=== PATIENT | female | born 1980 | race African-American/Black ===

== ENCOUNTER 2017-09-18 23:00 | Inpatient (IN) ==
[2017-09-18] MEDS ORDERED: Ringers Solution, Lactated 1,000 ML IVC SCH (23:45)
[2017-09-18] MEDS ORDERED: Metoclopramide 10 MG/2 ML VIAL IVP PRN (23:49)
[2017-09-18] MEDS ORDERED: *HR* Nalbuphine 20 MG/ML AMPUL IVP PRN (23:49)
[2017-09-18] MEDS ORDERED: Naloxone 0.4 MG/ML INJ IVP PRN (23:49)
[2017-09-18] MEDS ORDERED: Ondansetron 4 MG/2 ML VIAL IVP PRN (23:49)
[2017-09-18] MEDS ORDERED: Famotidine 20 MG/2 ML VIAL IVP PRN (23:49)
--- NOTE | 2017-09-19 00:24 | OB/GYN History & Physical ---
Date of Encounter: 09/19/17 Time of Encounter: 23:53 Assessment and Plan (1) Post-dates Current visit: Yes Status: Acute Admit for IOL Valentin placed in cervix. Balloon inflated with 30ml sterile water. Plan for cytotec when pt is ready. Epidural if requested. GBS negative. Anticipate . Qualifiers: Post-term type: 40-42 weeks gestation Qualified Code(s): O48.0 - Post-term (2) AMA (advanced maternal age) primigravida 35+ Current visit: Yes Status: Acute Qualifiers: Trimester: third trimester Qualified Code(s): O09.513 - Supervision of elderly primigravida, third trimester (3) Morbid obesity with BMI of 50.0-59.9, adult Current visit: Yes Status: Acute (4) Postmaturity , 40-42 weeks gestation Current visit: Yes Status: Acute History of Present Illness Chief complaint: postdates , IOL HPI: Ms. Gretchen Ferrell is a 36 year old female presenting at 40 weeks and 3 days gestation for scheduled induction of labor due to postdates . This has been complicated by AMA status and morbid obesity. She denies complaints at this time. Good FM. Blood type O positive Rubella immune Serologies negative. GBS negative Past Med Surg Social Fam HX - Family History Mother Age: 66 Living Status: Still Living Hx Family Cardiac Disorders: Yes (htn) Hx Family Respiratory Disorders: No Hx Family Cancer: No Hx Family GI Disorders: No Hx Family Genitourinary Disorders: No Hx Family Endocrine Disorder: Yes (diabetic) Hx Family Musculoskeletal Disorders: No Hx Family Neuromuscular Disorders: No Hx Family Neurologic Disorders: No Hx Family HEENT Disorders: No Hx Family Autoimmune Disorders: No Hx Family Reproductive Disorders: No Hx Family Psychosocial Disorders: No Hx Family Medical Disorders: No Medications and Allergies Ferrous Sulfate 325 mg PO DAILY 09/19/17 [History] Formula Tablet 1 tab PO DAILY 09/19/17 [History] 3 Allergy/AdvReac Type Severity Reaction Status Date / Time No Known Allergies Allergy Verified 09/19/17 00:20 Exam - Constitutional Constitutional: well developed, no acute distress, morbidly obese - HEENT HEENT: Mucus Membranes Moist - Lungs Respiratory exam: CTAB - Cardiovascular Cardiovascular exam: RRR, +S1, +S2 - Abdomen Abdomen: Present: gravid, non tender - Extremities Extremities exam: normal inspection, pedal edema (1+ bilaterally) Deep Tendon Reflex Grade: 1+ Diminished - Cervix Dilation: 1 (1-2) Effacement: 70 Station: -1 - Anus/Rectum Anus/Rectum: Present: normal perianal skin Results Result Diagrams: 09/19/17 00:53 All other labs normal.
[2017-09-19] MEDS ORDERED: miSOPROStol 25 MCG TABLET VG SCH (01:00)
[2017-09-19 01:16] LABS: Alanine Aminotransferase 15 Units/L (0-55); Aspartate Amino Transferase 33 Units/L (5-34); BUN/Creatinine Ratio 14 (6-26); Protein/Creatinine Ratio,Urine 0.41 mg/mg (0-0.20); Uric Acid 4.6 mg/dL (2.6-6.0); eGFR For African Americans > 60 (> 60); eGFR For Non-African Americans > 60 (> 60)
[2017-09-19 01:17] LABS: Blood Urea Nitrogen 11 mg/dL (7-20); Lactate Dehydrogenase 240 Units/L (159-327)
[2017-09-19 01:43] LABS: Basophils % 0.2 %; Eosinophils # 0.1 K/mcL (0.0-0.6); Eosinophils % 1.1 %; Hematocrit 29.3 % (35.3-44.9); Hemoglobin 9.6 g/dL (11.5-15.4); Immature Granulocytes % 0.9 % (0-4); Lymphocytes # 2.2 K/mcL (0.6-4.6); Lymphocytes % 24.9 %; Mean Corpuscular HGB Conc 32.8 g/dL (31.6-35.5); Mean Corpuscular Hemoglobin 28.4 pg (28.0-33.3); Mean Corpuscular Volume 86.7 fL (83.0-100.0); Mean Platelet Volume 11.4 fL (9.4-12.4); Monocytes # 0.7 K/mcL (0.0-1.3); Monocytes % 8.2 %; Neutrophils # 5.6 K/mcL (1.6-8.9); Nucleated Red Blood Cells 0.2 /100 WBC (0); Platelet Count 170 K/mcL (140-400); Red Blood Count 3.38 M/mcL (3.82-4.97); Segmented Neutrophils % 64.7 %
[2017-09-19 01:50] LABS: Amphetamine Screen,Urine Negative ng/mL (Cutoff=1000); Barbiturate Screen,Urine Negative ng/mL (Cutoff=200); Benzodiazepines Screen,Urine Negative ng/mL (Cutoff=200); Cannabinoid Screen,Urine Negative ng/mL (Cutoff = 50); Cocaine Screen,Urine Negative ng/mL (Cutoff= 300); Opiate Screen,Urine Negative ng/mL (Cutoff=300); Phencyclidine Screen,Urine Negative ng/mL (Cutoff=25)
[2017-09-19] MEDS ORDERED: miSOPROStol 100 MCG TABLET PO STA (02:54)
--- NOTE | 2017-09-19 02:56 | OB Labor Progress Note ---
Date of Encounter: 09/19/17 Time of Encounter: 02:55 Labor Progress Note - Subjective Subjective: Pt reports minimal discomfort at this time. - Heart Tones Heart Tones: Category I - Interventions Interventions: Valentin balloon out - Plan Plan: Cytotec 50mcg PO now.
[2017-09-19] MEDS: Ringers Solution, Lactated 1,000 ML IVC SCH (04:38)
[2017-09-19] MEDS: Magnesium Sulfate 20 gm/500mL 20 GM/500 ML IV.SOLN IVC SCH ×2 (05:13→15:14)
[2017-09-19] MEDS ORDERED: *HR* Labetalol 20 MG/4 ML SYRINGE IVP ONE ×3 (07:58→13:31)
[2017-09-19] MEDS ORDERED: Calcium Gluconate 1,000 MG/10 ML VIAL IVPB ONE (08:19)
--- NOTE | 2017-09-19 08:56 | OB Labor Progress Note ---
Date of Encounter: 09/19/17 Time of Encounter: 08:54 Labor Progress Note - Subjective Subjective: Patient in bed. Tolerating labor well. States she is tired, but does not have flu-like symptoms associated with the IV magnesium. - Vital Signs Vital Signs: VSS. Blood pressure stabilizing with magnesium and labetalol. - Cervix Cervix: 3-4/80/-1 - Heart Tones Heart Tones: 125 moderate variability and 15 x 15 accels. - [place] Chaparral: irregular uterine irritability - Interventions Interventions: AROM for clear fluid, IUPC and FSE placed without difficulty. Fetus and patient tolerated well. - Plan Plan: Continue routine labor management GBS negative Continue magnesium for pre-eclampsia Start pitocin and titrate for adequate labor Patient may have epidural and/or nubain upon request Anticipate vaginal delivery POC per consult with Dr Davenport.
[2017-09-19] MEDS ORDERED: Oxytocin 20 units/ LR 1000 mL 20 UNIT/1,000 ML BAG IVC SCH (09:00)
--- NOTE | 2017-09-19 12:19 | OB Labor Progress Note ---
Date of Encounter: 09/19/17 Time of Encounter: 11:13 Labor Progress Note - Subjective Subjective: Patient breathing through contractions - Vital Signs Vital Signs: VSS - Cervix Cervix: 4/80/-1 - Heart Tones Heart Tones: 130 moderate variability - [place]: Contractions every 3-4 minutes. - Interventions Interventions: IUPC and FSE replaced without difficulty. States they both fell out when patient got up to use the restroom. - Plan Plan: Continue routine labor management GBS negative Continue Magnesium Patient may have nubain/epidural upon request Pitocin currently infusing at 4mu/min. Titrate for adequate labor Anticipate vaginal delivery POC per consult with Dr Davenport.
--- NOTE | 2017-09-19 12:52 | Anesthesia Evaluation PreOp ---
Date of Encounter: 09/19/17 Time of Encounter: 12:50 - Past History Planned Operation: labor epidural Cardiac History: Denies any Significant Hx Pulmonary History: Denies Any Significant HX CORE BLOWER History: Denies Any Significant HX Other Medical History: Other (morbid obesity BMI 58.) Anesthesia History: No Prior Anesthetic Complications, Past Anesthesia (wisdom teeth extracted. No problems with sedation. No family history of anrsthetic problems.) Alcohol Use: none Drug use: none Medications and Allergies Ferrous Sulfate 325 mg PO DAILY 09/19/17 [History] Formula Tablet 1 tab PO DAILY 09/19/17 [History] 3 Allergy/AdvReac Type Severity Reaction Status Date / Time No Known Allergies Allergy Verified 09/19/17 00:20 - Meds/Allergy Pre-op Review Medications Reviewed: Yes Allergies Reviewed: Yes Beta Blockers on Current Med List: No Anesthesia Results - Labs 09/19/17 00:50 09/19/17 00:53 Anesthesia Exam VSS and FHTs stable. Height: 5'4" Weight: 154 KG NPO (# of Hours): >8 hrs for solids. Pain Scale: 4 Pain Scale Used: Numeric (1 - 10) - HEENT Pupil (Motor): Pupils equal Mallampati: III Teeth: Normal Oral Opening: Greater than 3 - CORE BLOWER LOC: Oriented CORE BLOWER Motor: Normal RUE, Normal LUE, Normal RLE, Normal LLE, Normal Face CORE BLOWER Sensory: Normal: RUE, LUE, RLE, LLE, Face - Cardiac Rhythm: Regular - Pulmonary Breath Sounds: bilateral Clear Respiratory Effort: Symmetrical Anesthesia Assess/Plan ASA Score: 3 Modified [place] Scale for Level of Consciousness: Cooperative, oriented, and tranquil Anesthetic Plan: Regional Monitoring Plan: Standard Monitors
[2017-09-19] MEDS ORDERED: Bupivacaine-MPF 0.25% 10 ML VIAL EP ONE (13:35)
[2017-09-19] MEDS ORDERED: *HR* FentaNYL (PF) 100 MCG/2 ML VIAL EP ONE (13:35)
[2017-09-19] MEDS ORDERED: Epidural Premix (fent/bupiv) 110 ML EP SCH (13:45)
[2017-09-19] MEDS ORDERED: Epidural Premix (fent/bupiv) 110 ML EP ONE (17:26)
[2017-09-19] MEDS ORDERED: Bupivacaine-MPF 0.25% 10 ML VIAL ONE (17:26)
[2017-09-19] MEDS ORDERED: *HR* FentaNYL (PF) 100 MCG/2 ML VIAL ONE (17:27)
--- NOTE | 2017-09-19 18:12 | Anesthesia Procedures ---
Date of Encounter: 09/19/17 Time of Encounter: 17:40 Procedures: Anesthesia - Epidural/Spinal Patient ID/Chart reviewed: Yes Patient examined: Yes OB Eval: Gestational age: 40 OB Eval: : 1 OB Eval: Hx Para: 0 OB Eval: Dilated at (cm): 5 OB Eval: Contractions: Non-stressed pattern Consent Obtained: Yes Supplemental Oxygen: None/Room Air Site Prep: Aseptic Technique, Sterile prep and drape, Povidone-Iodine 1% Patient position: upright Local Anesthetic: Lidocaine 1% Amount of Local Anesthetic used: 3 Touhy Needle Gauge: 18 Touhy Needle Depth (cm): 6 Catheter Depth at Skin (cm): 20 Test Dose (1.5% Lido + Epi): Volume given (mls): 3 Test Dose Result: Negative Loading Dose: 0.25% Marcaine (mls): 8 Loading Dose: Fentanyl (mcg): 100 Loading Dose Administered: Thru Catheter Infusion Med: 0.125% Bupivacaine w/ 2 mcg/ml Fentanyl Infusion Rate (mls/hr): [address]: Tegaderm, Tape Interspace Used: L3-L4 Loss of Resistance (MANJIT): Yes Blood: No CSF: No Paresthesia: No Vitals + FHT's: 3 Vital Signs Time 1740 1750 1755 1800 1805 1810 BP 184/103 116/62 107/55 108/55 100/52 122/62 Pulse 76 70 80 72 78 79 FHTs 120 120 120 120 120 120
[2017-09-19] MEDS ORDERED: EPHEDrine 50 MG/ML VIAL ONE (18:25)
[2017-09-19] MEDS ORDERED: Water for inj. (sterile) 10 ML IV ONE (18:26)
--- NOTE | 2017-09-19 18:42 | Anesthesia Progress Note ---
Date of Encounter: 09/19/17 Time of Encounter: 18:38 Anesthesia Note - Note Note: 09/19/17 18:38 called to LDR 9 for decreased blood pressure. 98/59. Patient's pressures have been rather high today. Feeling slightly lightheaded and heart monitor showed a late and decel that was relieved with position change. Ephedrine 5mg given with little to no effect. 5mg repeated and BP up to 109/62. Gave a third dose of 5mg Ephedrine with BP at 106/53. Gave anotherdose of 10mg ephedrine. pt. and baby stable. 09/19/17 18:42
[2017-09-20] MEDS ORDERED: Bupivacaine-MPF 0.25% 10 ML VIAL ONE ×2 (00:12→05:05)
[2017-09-20] MEDS ORDERED: *HR* FentaNYL (PF) 100 MCG/2 ML VIAL ONE ×2 (00:12→05:05)
[2017-09-20] MEDS: Magnesium Sulfate 20 gm/500mL 20 GM/500 ML IV.SOLN IVC SCH ×2 (01:09→09:30)
[2017-09-20] MEDS ORDERED: Epidural Premix (fent/bupiv) 110 ML EP ONE ×2 (01:23→08:42)
--- NOTE | 2017-09-20 06:52 | OB Labor Progress Note ---
Date of Encounter: 09/20/17 Time of Encounter: 06:50 Labor Progress Note - Subjective Subjective: Patient is feeling some pressure with contractions; has had multiple boluses overnight for her epidural. - Vital Signs Vital Signs: VSS - Cervix Cervix: 7/80/0 anterior. mild amount of caput noted to head. - Heart Tones Heart Tones: FHTs 150 with moderate variability no accels no decels category I tracing - [place] Soapstone [place] Soap[place]: iupc contractions every 2-3 minutes adequate labor pattern - Plan Plan: Continue routine labor management Magnesium for pre-eclampsia Epidural for pain control Encourage frequent position changes GBS negative Titirate pitocin as needed for adequate labor pattern Anticipate vaginal delivery POC per consult with Dr Davenport.
[2017-09-20] MEDS: *HR* Labetalol 20 MG/4 ML SYRINGE IVP ONE ×2 (08:49→14:09)
[2017-09-20] MEDS: Ringers Solution, Lactated 1,000 ML IVC SCH (09:29)
[2017-09-20] MEDS ORDERED: ROPIVACAINE HCL/PF 0.5% 30 ML VIAL ONE (10:27)
[2017-09-20] MEDS ORDERED: Lidocaine/EPI 1:200k 2% PF 20 ML VIAL ONE (10:29)
[2017-09-20] MEDS ORDERED: EPHEDrine 50 MG/ML VIAL ONE (11:22)
[2017-09-20] MEDS ORDERED: *HR* Succinylcholine 200 MG/10 ML VIAL IVP ONE (11:25)
[2017-09-20] MEDS ORDERED: Propofol 500 MG/50 ML INFUS..BTL ONE (11:25)
[2017-09-20] MEDS ORDERED: *HR* Oxytocin 10 UNIT/ML VIAL IM ONE (11:35)
[2017-09-20] MEDS ORDERED: *HR* FentaNYL (PF) 250 MCG/5 ML VIAL ONE (11:48)
[2017-09-20] MEDS ORDERED: *HR* Morphine Sulfate/PF 5 MG/10 ML AMPUL ONE (11:49)
--- NOTE | 2017-09-20 12:06 | OB Labor Progress Note ---
Date of Encounter: 09/20/17 Time of Encounter: 11:20 Labor Progress Note - Subjective Subjective: Pt more comfortable after epidural bolus - Cervix Cervix: 6/90/-1 - Heart Tones Heart Tones: 130/minimal/ late deceleration s - Plan Plan: Pt with late decelerations and minimal variability. repositioning, fluid bolus and pitocin turned off. Dr. Farnsworth called and evaluated tracing . Decision made to proceed with section. Pt transfered to OR and MD care.
[2017-09-20] MEDS ORDERED: Azithromycin 500 MG in D5% in Water 250 ML IVPB ONE (12:33)
--- NOTE | 2017-09-20 12:45 | Anesthesia Evaluation Post Op ---
Date of Encounter: 09/20/17 Time of Encounter: 12:42 - Vital Signs Vital Signs: vss, close monitoring on vs, was on MAG GTT. - Lungs Lungs: Clear Ascult./Percussion - Airway Airway: Non-obstructed - Mental Status Mental Status: Alert & Oriented, Answers Appropriately - Pain Pain Scale used: Manuel (Faces) - Nausea Vomiting Nausea Vomiting: Not Present - Discharge PostOp Status: Transfer Patient to floor
[2017-09-20] MEDS ORDERED: *HR* Promethazine 25 MG/ML VIAL IVP PRN (12:46)
[2017-09-20] MEDS ORDERED: *HR* HYDROmorphone (PF) 1 MG/ML SYRINGE IVP PRN ×2 (12:46→16:24)
--- NOTE | 2017-09-20 12:46 | OB/GYN Procedure Note ---
Section - Date of procedure: 09/20/17 Preop diagnosis: arrest of dilation, category 2 FHT tracing Post-op diagnosis: same (with suspected chorioamnionitis) Procedure: section, primary low transverse Surgeon: Claudia Farnsworth Estimated blood loss (cc): 400 Rip Saw Operator: Samara Valdivia Sports Instructor: Clint Morin Anesthesia Type: Epidural section complications: none Disposition: L&D Recovery Room Specimens: Placenta, Cord gasses - Infant (s) Infant A Delivery Date: 09/20/17 Delivery Time: 11:33 Presentation: vertex Position: ROP Gender: Male Viability: Viable Pounds: 7 Ounces: 10 at 1 minute: 5 at 5 minutes: 8 Specimens collected: cord blood, venous cord gases, arterial cord gases Placenta: spontaneous Cord: nuchal cord, 3 umbilical vessels, nuchal reduced - Narrative Narrative: Called to patient's room to evaluate tracing and discuss need for emergent section. heart rate tracing revealed minimal variability and late decelerations. Risks benefits and alternatives were discussed with the patient and informed consent obtained. Patient was taken to the operative suite and her epidural bolused. Betadine was fashion maternal abdomen. She was then draped in normal sterile fashion in the dorsal supine position. Timeout was then performed. Antibiotics were given, 3 g of Ancef. SCDs are on and active. Pfannenstiel skin incision is then made and carried through to underlying layer of fascia. The fascia was then incised in the midline and incision extended laterally with the Brooks scissors. The fascia was tented up and dissected off the rectus muscles sharply. The rectus muscles were in the midline and the peritoneum was tented up and entered sharply with the Metzenbaum scissors. The peritoneal incision was then extended bluntly. The bladder blade was then inserted and the vesicouterine peritoneum was idnetified. A low transverse uterine incision was then made above the vesicouterine peritoneum. An immediate odor was noted. The infant vertex was brought to the incision and the infant was delivered using fundal pressure. There was a nuchal cord which was reduced. Cord was clamped and cut. was handed to waiting nursery staff. A segment of cord was then collected for cord gases. Placenta delivered spontaneously complete and intact with a three-vessel cord and was ordered for cultures and pathology. The uterus was cleared of all clots and debris using moist laparotomy sponge. The uterine incision was then closed using 0 Vicryl in a running locked fashion. A second layer of the same suture was used to obtain excellent hemostasis. The abdomen was then cleared of all clots and debris using copious irrigation. The fascial incision was then closed using 0 PDS in a running fashion. The skin was closed using 4-0 Vicryl in a subcuticular fashion. Juan Jose dressing is then placed. Xray was called for a KUB per protocol. Mother was taken to recovery in stable condition. Infant was taken to nursery in stable condition.
[2017-09-20] MEDS ORDERED: *HR* Labetalol 20 MG/4 ML SYRINGE IVP ONE (14:04)
[2017-09-20] MEDS ORDERED: *HR* Morphine 2 MG/ML SYRINGE IVP PRN (16:24)
[2017-09-20] MEDS ORDERED: Metoclopramide 10 MG/2 ML VIAL IVP PRN (16:24)
[2017-09-20] MEDS ORDERED: Ondansetron 4 MG/2 ML VIAL IVP PRN (16:24)
[2017-09-20] MEDS ORDERED: Oxytocin 20 units/ LR 1000 mL 20 UNIT/1,000 ML BAG IVC SCH (16:24)
[2017-09-20] MEDS ORDERED: Acetaminophen 325 MG TABLET PO PRN (16:24)
[2017-09-20] MEDS ORDERED: Simethicone 80 MG TAB.CHEW PO PRN (16:24)
[2017-09-20] MEDS: ceFAZolin 2,000 MG in Water for inj. (sterile) 20 ML IVP SCH (17:31)
[2017-09-20] MEDS: Ibuprofen 600 MG TABLET PO PRN (17:33)
[2017-09-20] MEDS: Sennosides 8.6 MG TABLET PO PRN (17:38)
[2017-09-21] MEDS: ceFAZolin 2,000 MG in Water for inj. (sterile) 20 ML IVP SCH ×2 (00:27→09:00)
[2017-09-21 04:15] LABS: Hematocrit 30.4 % (35.3-44.9); Hemoglobin 9.8 g/dL (11.5-15.4); Mean Corpuscular HGB Conc 32.2 g/dL (31.6-35.5); Mean Corpuscular Hemoglobin 27.9 pg (28.0-33.3); Mean Corpuscular Volume 86.6 fL (83.0-100.0); Mean Platelet Volume 10.7 fL (9.4-12.4); Monocytes # 0.6 K/mcL (0.0-1.3); Platelet Count 162 K/mcL (140-400); Red Blood Count 3.51 M/mcL (3.82-4.97); Red Cell Distribution Width 14.6 % (11.5-14.5)
[2017-09-21 04:58] LABS: Platelet Estimate Normal (Normal)
[2017-09-21 05:02] LABS: Band Neutrophils % 15.6 % (0-4); Lymphocytes % 6.7 %; Monocytes % 4.4 %; Neutrophils # 12.9 K/mcL (1.6-8.9); Segmented Neutrophils % 73.3 %
[2017-09-21] MEDS: Ibuprofen 600 MG TABLET PO PRN ×3 (06:59→20:19)
[2017-09-21] MEDS: *HR* OxyCODONE/APAP 5/325 TABLET PO PRN ×2 (07:00→20:16)
[2017-09-21] MEDS ORDERED: Water for inj. (sterile) 10 ML IV ONE (08:33)
--- NOTE | 2017-09-21 08:56 | OB/GYN Progress Note ---
Date of Encounter: 09/21/17 Time of Encounter: 08:54 - Assessment and Plan (1) Status post primary low transverse section Current Visit: Yes Status: Acute Continue routine postop/ care possible discharge home tomorrow Subjective - Subjective Principal diagnosis: postop/ day 1 primary c/s Interval history: Patient meeting day 1 milestones. Patient denies any pain at this time. Patient reports: appetite normal, voiding normally, pain well controlled, ambulating normally : doing well, bottle feeding (breast milk. Patient is pumping) Objective - Vital Signs Latest vital signs: Vital Signs Temp Pulse Resp BP Pulse Ox 09/21/17 07:55 98.3 F 87 12 122/78 96 09/21/17 03:04 97.7 F 88 16 117/72 97 09/21/17 00:00 98.3 F 81 16 138/84 94 09/20/17 17:45 98.2 F 84 14 122/78 96 09/20/17 16:45 97.8 F 89 14 120/77 97 09/20/17 15:45 97.8 F 84 14 127/74 98 09/20/17 15:10 98.0 F 96 14 129/85 98 09/20/17 14:40 98.4 F 96 14 130/87 99 Intake and Output 09/20/17 09/21/17 09/21/17 23:59 07:59 15:59 Intake Total 1270 / 1270 Output Total 800 / 800 Balance 470 / 470 Intake: IV Fluids 20 / 20 Ancef 2,000 MG In Water for inj . (sterile) 20 ML @ 200 mls/hr IVP Q8H [facility] Rx#:[id number] Oral 1250 / 1250 Output: Catheter 800 / 800 Other: Weight 147.145 kg Patient Weight 09/21/17 23:59 Weight 147.145 kg - Exam Lungs: bilateral: normal Chest: Normal S1, Normal S2 Extremities: Present: normal Abdomen: Present: normal appearance, soft, gravid Incision: Present: normal, dry, dressed (CLARITA) Uterus: Present: normal, firm Fundal Height: 2 (U/2) - Labs Labs: Laboratory Results - last 24 hr 09/21/17 04:04 WBC 14.5 H D RBC 3.51 L Hgb 9.8 L Hct 30.4 L MCV 86.6 MCH 27.9 L MCHC 32.2 RDW 14.6 H Plt Count 162 MPV 10.7 Seg Neutrophils % 73.3 Band Neutrophils % 15.6 H Lymphocytes % 6.7 Monocytes % 4.4 Neutrophils # 12.9 H Lymphocytes # 1.0 Monocytes # 0.6 Platelet Estimate Normal
[2017-09-21] MEDS: Azithromycin 250 MG TABLET PO SCH (09:02)
[2017-09-21] MEDS: cephALEXin 500 MG CAPSULE PO SCH ×2 (09:02→20:16)
[2017-09-21] MEDS: Prenatal Vit/FA 1 EACH TABLET PO SCH (14:26)
[2017-09-21] MEDS: Sennosides 8.6 MG TABLET PO PRN (20:16)
[2017-09-22] MEDS: *HR* OxyCODONE/APAP 5/325 TABLET PO PRN ×2 (05:07→13:14)
[2017-09-22] MEDS: Ibuprofen 600 MG TABLET PO PRN ×2 (05:08→13:14)
[2017-09-22] MEDS: Azithromycin 250 MG TABLET PO SCH (09:18)
[2017-09-22] MEDS: cephALEXin 500 MG CAPSULE PO SCH (09:19)
[2017-09-22] MEDS: Prenatal Vit/FA 1 EACH TABLET PO SCH (09:19)
[2017-09-22 11:32] VITALS: BP 126/81
--- NOTE | 2017-09-22 11:49 | Discharge Summary ---
Date of Encounter: 09/22/17 Time of Encounter: 11:47 - Discharge Diagnosis (1) Morbid obesity with BMI of 50.0-59.9, adult Priority: Secondary Status: Acute Comments: CLARITA intact (2) Preeclampsia Priority: Secondary Status: Acute Comments: BP now well controlled on Labetalol. Pt has cuff at home and will monitor. Qualifiers: Trimester: third trimester Qualified Code(s): O14.93 - Unspecified pre- eclampsia, third trimester (3) Status post primary low transverse section Priority: Primary Status: Acute Comments: Pt meeting all post-op milestones - Discharge Medications Prescriptions: OxyCODONE/APAP 5/325 [Percocet 5/325 MG] 1 each PO Q4HR PRN #30 tablet PRN Reason: Moderate pain 4-6 Azithromycin [Zithromax] 500 mg PO DAILY #5 tablet cephALEXin [Keflex] 500 mg PO BID #10 capsule Home Medications: Formula Tablet 1 tab PO DAILY 09/19/17 [History] Azithromycin [Zithromax] 500 mg PO DAILY #5 tablet 09/22/17 [Rx] Docusate [Colace] 100 mg PO BID capsule 09/22/17 [Rx] Ibuprofen [Motrin] 600 mg PO Q6HR PRN tablet 09/22/17 [Rx] Labetalol HCl 200 mg PO BID #60 tablet 09/22/17 [Rx] OxyCODONE/APAP 5/325 [Percocet 5/325 MG] 1 each PO Q4HR PRN #30 tablet 09/22/17 [Rx] Simethicone [Gas-X] 80 mg PO TID PRN tab.chew 09/22/17 [Rx] cephALEXin [Keflex] 500 mg PO BID #10 capsule 09/22/17 [Rx] Allergies/Adverse Reactions: 3 Allergy/AdvReac Type Severity Reaction Status Date / Time No Known Allergies Allergy Verified 09/19/17 00:20 Data Procedures and tests throughout hospitalization: Laboratory Tests 09/19/17 09/19/17 09/19/17 00:50 00:53 00:53 WBC 8.7 RBC 3.38 L Hgb 9.6 L Hct 29.3 L MCV 86.7 MCH 28.4 MCHC 32.8 RDW 14.0 Plt Count 170 MPV 11.4 Immature Gran % 0.9 Seg Neutrophils % 64.7 Band Neutrophils % Lymphocytes % 24.9 Monocytes % 8.2 Eosinophils % 1.1 Basophils % 0.2 Neutrophils # 5.6 Lymphocytes # 2.2 Monocytes # 0.7 Eosinophils # 0.1 Basophils # 0.0 Nucleated RBCs/100 WBC 0.2 H Platelet Estimate BUN Creatinine Est GFR ( Amer) Est GFR (Non-Af Amer) BUN/Creatinine Ratio Uric Acid AST ALT Lactate Dehydrogenase Urine Creatinine 42 Protein/Creatinin Ratio 0.41 H Urine Total Protein 17 H Urine Opiates Screen Negative Ur Barbiturates Screen Negative Ur Phencyclidine Scrn Negative Ur Amphetamines Screen Negative U Benzodiazepines Scrn Negative Urine Cocaine Screen Negative U Marijuana (THC) Screen Negative 09/19/17 09/21/17 00:53 04:04 WBC 14.5 H D RBC 3.51 L Hgb 9.8 L Hct 30.4 L MCV 86.6 MCH 27.9 L MCHC 32.2 RDW 14.6 H Plt Count 162 MPV 10.7 Immature Gran % Seg Neutrophils % 73.3 Band Neutrophils % 15.6 H Lymphocytes % 6.7 Monocytes % 4.4 Eosinophils % Basophils % Neutrophils # 12.9 H Lymphocytes # 1.0 Monocytes # 0.6 Eosinophils # Basophils # Nucleated RBCs/100 WBC Platelet Estimate Normal BUN 11 Creatinine 0.76 Est GFR ( Amer) > 60 Est GFR (Non-Af Amer) > 60 BUN/Creatinine Ratio 14 Uric Acid 4.6 AST 33 ALT 15 Lactate Dehydrogenase 240 Urine Creatinine Protein/Creatinin Ratio Urine Total Protein Urine Opiates Screen Ur Barbiturates Screen Ur Phencyclidine Scrn Ur Amphetamines Screen U Benzodiazepines Scrn Urine Cocaine Screen U Marijuana (THC) Screen - Impressions ITS Impressions KUB X-Ray 09/20/17 11:42 IMPRESSION: 1. No acute abnormality. 2. No evidence of a retained sponge or metallic utensil. D/ / 09/20/2017 13:09:35 Rodriguez Ferrer MD / mirella Interpreting Provider: Rodriguez Ferrer MD Date of admission: 09/18/17 23:32 Primary care physician: PCP NONE Discharging clinician: Sharonda Miguel Anticipated date of discharge: 09/22/17 - Patient Status Disposition: Home, Self-Care Condition: Good Functional capacity at discharge: independent ambulation Overall status at discharge: patient is progressing back to baseline - Discharge Instructions Follow Up With: NONE,PCP [Primary Care Provider] - Claudia Farnsworth DO [Partnered Physician] - - Diet and Activity Activity: increase activity as tolerated Hospital Course Reason for admission: induction of labor Delivery: section Episiotomy: none Laceration: none Other procedures: none complications: none Discharge diagnosis: pre-eclampsia, post term preg-delivered [place] baby: male Hospital course: - Date of procedure: 09/20/17 Preop diagnosis: arrest of dilation, category 2 FHT tracing Post-op diagnosis: same (with suspected chorioamnionitis) Procedure: section, primary low transverse Surgeon: Claudia Farnsworth Estimated blood loss (cc): 400 [employer] Clerk: Samara Valdivia Employment Specialist: Clint Morin Anesthesia Type: Epidural section complications: none Disposition: L&D Recovery Room Specimens: Placenta, Cord gasses - (s) Infant A Delivery Date: 09/20/17 Delivery Time: 11:33 Presentation: vertex Position: ROP Gender: Male Viability: Viable Pounds: 7 Ounces: 10 at 1 minute: 5 at 5 minutes: 8 Specimens collected: cord blood, venous cord gases, arterial cord gases Placenta: spontaneous Cord: nuchal cord, 3 umbilical vessels, nuchal reduced Time Attestation: Total time spent providing and/or coordinating discharge services: Time Spent: Less than 30 minutes - VTE Documentation of Mechanical Device: Intermittent pneumatic compression device Exam - Constitutional Vitals: Temp Pulse Resp BP Pulse Ox 98.4 F 74 16 126/81 99 09/22/17 11:31 09/22/17 11:31 09/22/17 11:31 09/22/17 11:31 09/22/17 11:31 General appearance IM: A&O X 3, pleasant, no acute distress - Respiratory Respiratory exam: Present: CTAB - Cardiovascular Cardiovascular exam IM: Present: RRR, +S1, +S2 - GI/Abdominal GI/Abdominal exam IM: soft, no peritoneal signs - Rectal Rectal exam: deferred - Uterine Tone: Firm Uterus Position: 1 Finger Below Umbilicus - Extremities Exam Extremities exam IM: Present: pedal edema (2+ bilaterally to knees, no erythema or warmth) - Neurological Exam Neurological exam: normal gait, oriented X3 - Psychiatric Additional comments: reports good mood
== END 2017-09-22 15:34 | disposition home or self-care (01) | DRG 765 ==
LOC: 1NENULAB 23:32 → 1NENUOBS 09-20 16:13
PROVIDERS: ADMIT Registered Nurse; ATTEND Registered Nurse